=== PATIENT | male | born 1940 | race Caucasian/White ===

== ENCOUNTER 2020-02-07 16:45 | Emergency (ER) | payer MEDICARE, OTHER, SELFPAY ==
--- NOTE | ~2020-02-07 | CT_ITS ---
EXAMINATION: CT brain wo con, CT facial bones wo con EXAM DATE: 02/07/2020 17:32 INDICATION: Head, facial injury, pain. TECHNIQUE: Spiral CT of the head was performed without contrast. Axial, coronal and sagittal images were reviewed. Spiral CT of the facial bones was performed without contrast. Axial images were revie wed. Coronal and sagittal reformatted images were also reviewed. The dose-length product (DLP) for this examination was 605.33 (accession [id number]), 614.99 (accession [id number]) mGy-cm. Th e exposure was tailored according to patient size, and iterative reconstruction (ASIR) was used as ad ditional dose reduction technique. There is no prior study for comparison. FINDINGS: HEAD CT: There is no acute intraparenchymal hemorrhage. No evidence of intraparenchymal brain mass l esion. No evidence of acute infarction. There is moderate periventricular and subcortical hypodensit y, nonspecific but probably related to small vessel ischemic disease. There is mild to moderate pro minence of the sulci and ventricles related to cerebral atrophy. There is intracranial carotid flex riosclerosis. There is no mass effect or midline shift. There is no obstructive hydrocephalus suspe cted. There are no extra-axial collections. There are no calvarial acute fractures. FACIAL CT: Bilateral nondisplaced nasal bone fractures which could be acute, clinical correlation.. The orbits and sinuses are intact Patient has had bilateral ocular lens surgery. There is swelling overlying the chin with intact mandible. There is severe rightward nasal septal deviation. The visu alized sinuses and mastoid air cells are well aerated. IMPRESSION: 1. No acute intracranial findings. 2. Nondisplaced nasal bone fractures which could be acute. Reviewed, dictated and finalized at location A. IMPRESSION: 1. No acute intracranial findings. 2. Nondisplaced nasal bone fractures which could be acute.
[2020-02-07 16:52] VITALS: BP 162/79; PULSE 92; RESP 18; TEMP 37.1; O2SAT 94
[2020-02-07 16:58] VITALS: BP 134/73; PULSE 79; RESP 18; TEMP 36.8; O2SAT 99
[2020-02-07] MEDS: TETANUS,DIPHTHERIA,AC PERTUSSIS ADULT (0.5 ML) BOOSTRIX IM (17:32)
[2020-02-07 18:40] VITALS: BP 158/83; PULSE 78; RESP 20; O2SAT 99
--- NOTE | 2020-02-07 18:45 | ED.HEATRA ---
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 Patient was standing on the ground and was not up on any ladders. Patient was with his grandson and did not lose any consciousness. Patient had bleeding from the nose and tenderness to the anterior aspect of his face. Patient denies any changes in vision or hearing, loss of consciousness, nausea, vomiting, diarrhea or any other symptoms. Patient has behaving and acting normally since the fall. patient states that he takes aspirin daily but denies being on any other blood thinners. Related Data Allergies Allergy/AdvReac Type Severity Reaction Status Date / Time No Known Allergies Allergy Unverified 10/05/13 21:13 Review of Systems Review of Systems: Narrative: CONSTITUTIONAL: Denies fever, chills, or sweats. EYES: Denies visual changes, redness, or discharge. ENT: Reports nasal tenderness and bleeding denies rhinorrhea, congestion, sore throat, or otalgia. CARDIOVASCULAR: Denies chest pain, palpitations, or edema. RESPIRATORY: Denies cough or dyspnea. GASTROINTESTINAL: Denies abdominal pain, nausea, vomiting, or diarrhea. GENITOURINARY: Denies dysuria or hematuria. SKIN: Abrasions to nose denies rash or itching. MUSCULOSKELETAL: Denies back pain, joint pain, or myalgia. NEUROLOGIC: Denies headache, numbness, dizziness, or weakness. PSYCHIATRIC: Denies anxiety or depression. PMFSH Social History Social History Gender identity (if verbalized by the patient): Male Exam Narrative: Exam Narrative: GENERAL: Well-appearing, well-nourished, and in no acute distress. HEAD: Normocephalic, atraumatic. EYES: PERRLA and EOMI. ENT: 2cm abrasion to the right of nose, 2.5 cm of abrasion to superior aspect of nose and 2.5 cm abrasion to the left lower nose. Not deep or gaping. Nares- dried epistaxis to nares bilaterally, swelling and tenderness to nose and nasal bridge. Mucous membranes moist. Oropharynx without tonsillar hypertrophy exudate or other lesions. Bilateral TMs pearly gaming nonbulging NECK: Supple. No adenopathy or masses. No carotid bruits or JVD CHEST: Not tender to palpation. Clear to auscultation. No respiratory distress. No tachypnea. HEART: Regular rate and rhythm. Normal peripheral pulses. ABDOMEN: Soft, nontender, nondistended, normal active bowel sounds. EXTREMITIES: Normal range of motion. No edema. SKIN: Warm, dry, no rash. NEURO: No focal deficits. Alert and oriented x3. PSYCH: Normal mood and affect. Course Vital Signs Vital signs: Vital Signs Temperature 98.7 F 02/07/20 16:52 Pulse Rate 92 02/07/20 16:52 Respiratory Rate 18 02/07/20 16:52 Blood Pressure 162/79 H 02/07/20 16:52 Pulse Oximetry 94 02/07/20 16:52 Temperature 98.2 F 02/07/20 16:58 Pulse Rate 78 02/07/20 19:43 Respiratory Rate 18 02/07/20 19:43 Blood Pressure 138/68 02/07/20 19:43 Pulse Oximetry 99 02/07/20 19:43 MDM - Head Injury MDM Narrative Medical decision making narrative: Injuries to patient's nose are water abrasions versus lacerations. Dermabond applied to assist in bringing together healing of those areas. Wound care instructions given. Consult with Dr. Finley's pertaining to CT report. He states to advised patient not to blow his nose, that he could use Afrin for [place] nasal spray. He recommends putting patient on Keflex twice a day for a week and to have patient call him to be seen in the office in the next day or 2 to evaluate and see if surgery is needed. Patient and his have been updated pertaining to discharge instructions and the need for follow-up. They are instructed to return to the emergency department if they have any roberto
[2020-02-07 19:43] VITALS: BP 138/68; PULSE 78; RESP 18; O2SAT 99
== END 2020-02-07 19:46 | disposition home or self-care (01) ==
PROVIDERS: Emergency Provider Emergency Medicine
DX: S02.2XXA Fracture of nasal bones, initial encounter for closed fracture (principal); J34.2 Deviated nasal septum; Z79.82 Long term (current) use of aspirin; Z23 Encounter for immunization; W18.30XA Fall on same level, unspecified, initial encounter
CPT/HCPCS: 70450; 70486; 90471; 90715; 99284

== ENCOUNTER 2021-03-26 13:03 | Emergency (ER) | payer MEDICARE, OTHER, SELFPAY ==
[2021-03-26] VITALS (22 sets, daily range): BP systolic 122–155; BP diastolic 74–95; PULSE 78–124; RESP 13–23; TEMP 36.6; O2SAT 79–95
--- NOTE | ~2021-03-26 | CT_ITS ---
EXAMINATION: CT diagnostic chest wo con DATE: 03/26/2021 14:55 INDICATION: Shortness of breath TECHNIQUE: Computed tomography (CT) of the chest was performed without intravenous contrast. The dose -length product (DLP) was 312.20 mGy-cm. Automated exposure control and iterative reconstruction tech nique were employed. COMPARISON: None FINDINGS: There is severe emphysema. There is mild dependent atelectasis. No focal airspace opacities are identified. There appears to be a small amount of debris or mucous in the right mainstem bronchu s. No pathologically enlarged thoracic lymph nodes are identified. The heart size is normal. There is calcified atherosclerosis of the aorta and coronary arteries. Punctate calcifications in otherwise n ormal appearing liver and spleen likely represent healed granulomatous disease. There are partially i hansa changes of endoluminal abdominal aortic aneurysm repair. Also noted are partially imaged change s of lumbar fusion. There are vertebroplasty changes in the T7 and T9 vertebral bodies. An age-indete rminate T10 compression fracture is present with one third loss of anterior vertebral body height. Th ere is a 3 mm nonobstructing stone in the upper pole of the right kidney. IMPRESSION: 1. Severe emphysema. Reviewed, dictated and finalized at location A. IMPRESSION: 1. Severe emphysema.
--- NOTE | ~2021-03-26 | XR_ITS ---
XR chest 1V 03/26/2021 14:23 Indication: Status post fall. Chest pain. Procedure: AP view of the chest Comparison: No prior studies for comparison. Findings: There is biapical opacification. There are patchy bilateral infiltrates. Heart size normal. There is atherosclerosis and ectasia of the aorta. No significant pleural effusion. No pneumothorax. No acute osseous abnormality. Impression: 1: Patchy bilateral infiltrates may represent atelectasis or developing pneumonia. 2: Biapical opacification, of uncertain significance. Recommend follow-up upright PA and lateral view s of the chest when the patient's condition permits. Reviewed, dictated and finalized at location B. Impression: 1: Patchy bilateral infiltrates may represent atelectasis or developing pneumon ia. 2: Biapical opacification, of uncertain significance. Recommend follow-up uprig ht PA and lateral views of the chest when the patient's condition permits.
--- NOTE | ~2021-03-26 | XR_ITS ---
XR hip RT min 3V w AP pelvis 03/26/2021 14:23 Indication: Right hip pain after fall Procedure: AP pelvis and 3 views right hip Comparison: No prior studies for comparison. Findings: There is moderate osteoarthritis of the hips. Pelvic rings are intact. There are endovascul ar stent in the lower abdomen. There are surgical changes of spinal fusion at the lumbosacral junctio n. No acute fracture or traumatic malalignment. Impression: 1: No acute fracture. Reviewed, dictated and finalized at location B. Impression: 1: No acute fracture.
--- NOTE | ~2021-03-26 | XR_ITS ---
XR knee RT 3V 03/26/2021 14:23 Indication: Status post fall. Right knee pain. Procedure: 3 views right knee Comparison: No prior studies for comparison. Findings: There is right total knee arthroplasty. There is extensive atherosclerosis. Right knee pros thesis well seated. No acute fracture or traumatic malalignment. Small joint effusion. Impression: 1: No acute bone or joint abnormality. Reviewed, dictated and finalized at location B. Impression: 1: No acute bone or joint abnormality.
--- NOTE | ~2021-03-26 | CT_ITS ---
EXAMINATION: CT hip RT wo con DATE: 03/26/2021 17:18 INDICATION: Right hip pain. Fall. TECHNIQUE: Computed tomography (CT) of the right hip was performed without intravenous contrast. Auto mated exposure control and iterative reconstruction technique were employed. The dose-length product was 462.21 mGy-cm. COMPARISON: Pelvis and right hip radiographs 03/26/2021 FINDINGS: There is a stent graft in abdominal aorta and the common iliac arteries. The prostate is mo derately enlarged. There are changes of anterior and posterior fusion procedures in lumbar spine. The re is a nondisplaced intertrochanteric fracture of proximal right femur. There is moderate right hip osteoarthritis. IMPRESSION: 1. Nondisplaced intertrochanteric fracture of proximal right femur. 2. Moderate right hip osteoarthritis. Reviewed, dictated and finalized at location A.
--- NOTE | 2021-03-26 13:39 | ECG_ITS ---
Measurements Intervals [place] Rate: 82 P: 5 MS: 156 QRS: -62 QRSD: 117 T: 75 QT: 381 QTc: 445 Interpretive Statements SINUS RHYTHM INCOMPLETE RIGHT BUNDLE BRANCH BLOCK LEFT ANTERIOR FASCICULAR BLOCK LEFT VENTRICULAR HYPERTROPHY AND ST-T CHANGE BASELINE ARTIFACT- I, II, III, AVR, AVF, V1-V6 ABNORMAL ECG Electronically Signed On 03-26-2021 13:52:26 CDT by Toan Horvath D.O.
[2021-03-26 14:19] LABS: Basophils Percent Auto 0.7 % (0.2-1.2); Eosinophils Absolute Auto 0.1 K/mm3 (0-0.3); Eosinophils Percent Auto 1.6 % (0-4.4); Hematocrit 51.9 % (42.0-52.0); Hemoglobin 17.2 g/dL (14.0-18.0); Immature Granulocyte Absolute 0.03 K/mm3 (0.00-0.031); Immature Granulocyte Percent A 0.5 % (0-0.5); Lymphocytes Absolute Auto 0.92 K/mm3 (0.9-3.2); Mean Corpuscular HGB Conc 33.1 g/dl (32-36); Mean Corpuscular Hemoglobin 34.3 pg (26-34); Mean Corpuscular Volume 103.6 fl (80-100); Mean Platelet Volume 10.1 fl (7.4-10.4); Monocytes Absolute Auto 0.4 K/mm3 (0.1-0.6); Monocytes Percent Auto 7.5 % (2.6-8.5); Neutrophils Absolute Auto 4.2 K/mm3 (1.3-6.7); Neutrophils Percent Auto 73.7 % (45.5-73.1); Platelet Count Result 171 k/mm3 (150-375); Red Blood Count 5.01 M/mm3 (4.6-6.20); Red Cell Distribution Width 13.2 % (11.5-14.5); White Blood Count 5.7 K/mm3 (4.5-10.0)
[2021-03-26] MEDS: HYDROcodone/acetaminophen (*CRX) 5-325 MG TABLET 1 TAB PO (14:24)
[2021-03-26 14:32] LABS: Alanine Aminotransferase 23 U/L (4-50); Alkaline Phosphatase 86 U/L (38-126); Anion Gap 11 mmol/L (8-16); Aspartate Amino Transferase 41 U/L (17-59); Bilirubin,Total 0.9 mg/dL (0.2-1.3); Blood Urea Nitrogen 22 mg/dL (9-20); Calcium 10.2 mg/dL (8.4-10.2); Carbon Dioxide 29 mmol/L (22-30); Chloride 100 mmol/L (98-107); Estimated CRCL calculation 59 ml/min; Estimated Glomerular Filt Rate > 60; Glucose 117 mg/dL (75-110); Sodium 140 mmol/L (137-145)
[2021-03-26 15:11] LABS: Alveolar/Arterial O2 Gradient 65.6 mmHg; Base Excess ABG 2.1 mEq/l (+/-2.0); Carboxyhemoglobin 1.3 % THb (0-2.0); Fractional Inspired Oxygen 21 %; HCO3 ABG 27.3 mEq/l (22.0-26.0); Methemoglobin ABG 0.3 %THb (0-1.5); Oxygen Content ABG 14.8 %vol (16.0-22.0); Oxyhemoglobin 61.6 % THb (90.0-100.0); Reduced Hemoglobin 36.8 %THb (0-5.0); Total Hemoglobin 17.2 g/dL (12.0-18.0)
[2021-03-26 15:40] LABS: PO2 ABG 31.4 mmHg (80.0-100.0)
[2021-03-26 15:41] LABS: Device ROOM AIR; Modified Allen's Test Pass; Oxygen Saturation ABG 60.5 % (95.0-100.0); Site Drawn LEFT RADIAL
[2021-03-26] MEDS: IPRATROPIUM BR 0.02% INH SOLN 0.5 MG/2.5 ML VIAL INHALATION (15:52)
[2021-03-26] MEDS: ALBUTEROL SULFATE NEB 2.5 MG/0.5 ML INH 5 MG INHALATION (15:52)
[2021-03-26] MEDS: methylPREDNISolone SOD SUCC 125 MG VIAL 80 MG IV PUSH (16:12)
--- NOTE | 2021-03-26 17:02 | ED.GENADULT ---
HPI - General Adult General Chief complaint: Fall <RAJ Fink Last Filed: 03/26/21 21:04> Stated complaint: FALL <RAJ Fink Last Filed: 03/26/21 21:04> Time Seen by Provider: 03/26/21 13:08 <RAJ Fink Last Filed: 03/26/21 21:04> Source: patient, family and RN notes reviewed <RAJ Fink Last Filed: 03/26/21 21:04> Mode of arrival: ambulatory <RAJ Fink Last Filed: 03/26/21 21:04> Limitations: no limitations <RAJ Fink Last Filed: 03/26/21 21:04> History of Present Illness HPI narrative: Patient is a 80-year-old male who presents to emergency department per EMS for evaluation of injuries related to a ground-level fall which was described as mechanical in nature patient fell injuring the right hip notes that he was assisted in standing got into his car was able to drive home but then had difficulty getting out of the vehicle attributed to pain localized to the right hip and knee patient notes aching pain worse with any activity or movement is now having difficulty getting up or standing patient denies head injury syncope loss of consciousness or recent illness patient lives at home with his and has history of emphysema <RAJ Fink Last Filed: 03/26/21 21:04> Related Data Allergies/adverse reactions: Allergies Allergy/AdvReac Type Severity Reaction Status Date / Time No Known Allergies Allergy Unverified 10/05/13 21:13 <RAJ Fink Last Filed: 03/26/21 21:04> Review of Systems Review of Systems: All systems reviewed & are unremarkable except as noted in HPI and below <RAJ Fink Last Filed: 03/26/21 21:04> [facility] Past Medical History Medical History: Medical History (Updated 03/26/21 @ 22:16 by Mike Tucker MD) Arthritis COPD (chronic obstructive pulmonary disease) <RAJ Fink Last Filed: 03/26/21 21:04> Surgical History Surgical History: Surgical History (Updated 03/26/21 @ 17:05 by Amari Agudelo PA-C) History of lumbar fusion <Amari Agudelo PA-C - Last Filed: 03/26/21 21:04> Social History Social History: Social History (Updated 03/26/21 @ 17:06 by Amari Agudelo PA-C) Smoking status: Former smoker Gender identity (if verbalized by the patient): Male <Amari Agudelo PA-C - Last Filed: 03/26/21 21:04> Exam Narrative: Exam Narrative: GENERAL: Well-appearing, well-nourished, and in no acute distress. HEAD: Normocephalic, atraumatic. EYES: PERRLA and EOMI. ENT: Nares clear, no rhinorrhea or epistaxis. Mucous membranes moist. NECK: Supple. No adenopathy or masses. CHEST: Clear to auscultation. No respiratory distress. No wheezes rales or rhonchi HEART: Regular rate and rhythm. No murmur heard. Normal peripheral pulses. ABDOMEN: Soft, nontender, nondistended EXTREMITIES: Tenderness of the right hip and the right knee. No cervical thoracic or lumbar tenderness SKIN: Warm, dry, no rash. NEURO: No focal deficits. Alert and oriented x3. Cranial nerves II through XII grossly intact. Neurovascularly intact PSYCH: Normal mood and affect. <Amari Agudelo PA-C - Last Filed: 03/26/21 21:04> Course Course Emergency Course: Patient evaluated after fall fracture was identified on CAT scan imaging patient prefers to be transferred to [facility] where his physicians are located. Patient is afebrile nontoxic-appearing no distress pain is worse with any activity or movement <Amari Agudelo PA-C - Last Filed: 03/26/21 21:04> APRON OPERATOR/PA Physician Supervision Patient seen and examined. Vital signs stable. Not acute distress. Regular and rhythm, clear to auscultation bilateral, soft nontender nondistended, pain on palpation of the right hip. Neurovascular is intact. Pain well controlled. Discussed with Dr. Figueroa at [facility] and accepted the transfer <R
[2021-03-26] MEDS: MORPHINE SULFATE (*CRX) 4 MG/ML INJ IV PUSH ×2 (18:34→21:42)
[2021-03-26] MEDS: METOPROLOL TARTRATE 50 MG TAB 25 MG PO (21:39)
[2021-03-26] MEDS: SODIUM CHLORIDE 0.9% IV 1,000 ML 80 ML IV CONT (21:41)
[2021-03-26] MEDS: LORazepam INJ (*CRX) 2 MG/ML VIAL 0.5 MG IV PUSH (21:42)
--- NOTE | 2021-03-26 22:37 | PC.NURSE ---
Spoke with Franchesca on [facility] transfer line. Gave initial information about pt, states she will call back when bed becomes available at [facility].
[2021-03-27] MEDS: HYDROmorphone HCL INJ (*CRX) 1 MG/ML SYR 0.5 MG IV PUSH (01:03)
[2021-03-27 01:06] VITALS: BP 130/85; PULSE 92; RESP 23; O2SAT 94
[2021-03-27 02:27] VITALS: BP 125/73; PULSE 78; RESP 20; O2SAT 93
--- NOTE | 2021-03-27 02:43 | PC.NURSE ---
Received call from Marcy on [place] transfer line stating pt had bed at [facility] (Rm# [id number]).
--- NOTE | 2021-03-27 03:00 | PC.NURSE ---
Called [facility] for transport. ETA 20 minutes
[2021-03-27 03:34] VITALS: BP 121/82; PULSE 78; RESP 24; O2SAT 95
== END 2021-03-27 03:34 | disposition short-term general hospital (02) ==
PROVIDERS: Emergency Medicine Emergency Medical Services; Emergency Provider Emergency Medicine
DX: S72.144A Nondisplaced intertrochanteric fracture of right femur, initial encounter for closed fracture (principal); S80.01XA Contusion of right knee, initial encounter; J44.9 Chronic obstructive pulmonary disease, unspecified; Z87.891 Personal history of nicotine dependence; W18.30XA Fall on same level, unspecified, initial encounter
CPT/HCPCS: 36415; 36600; 71045; 71250; 73502; 73562; 73700; 80053; 82375; 82805; 83050; 85025; 93005; 94640; 96361; 96365; 96375; 96376; 99285; A9270; J0131; J1170; J2060; J2270; J2930; J7030